=== PATIENT | male | born 1980 | race Caucasian/White ===

== ENCOUNTER → 2017-02-09 | Outpatient (CLI) | payer SELFPAY ==
--- NOTE | 2017-02-09 16:14 | CT ---
EXAMINATION: Non contrast CT head and facial bones. Coronal and sagittal reformats. HISTORY: Head injury FINDINGS: Head: No evidence of intra or extra axial hemorrhage, mass, midline shift, hydrocephalus or edema. No hypoattenuation changes in the major vascular territories to suggest acute infarct. No abnormal intracranial calcifications are detected. No evidence of substantial vascular calcifications. Paranasal sinuses and mastoid air cells are well aerated without substantial findings. Pituitary fo ssa appears unremarkable. Calvarium is intact. No evidence of skull fracture. Facial bones: There is a large periapical lucency within the right posterior mandible adjacent to th e posterior most molar with cortical breakthrough. There is a small dental Elicia involving the left posterior maxillary molar. There is mild mucosal thickening within the maxillary sinuses. Ethmoid ai r cells, sphenoid, and frontal sinuses are grossly clear. The nasal bones are intact. Moderate leftw roya deviation of the nasal septum with a spur. Zygomatic arches and pterygoid plates are intact. The ostiomeatal complexes are clear. The mandible and maxilla otherwise appear intact. Orbital dominguez ar e preserved the temporomandibular joints are symmetric. The globes are symmetric. Borderline level 1 lymph nodes bilaterally, symmetric and likely reactive. IMPRESSION: 1. No acute intracranial findings. 2. No displaced facial bone fracture identified. 3. Right posterior mandibular molar periapical lucency with cortical breakthrough. 4. No acute facial bone injury.
== END ==
LOC: MW.CT 12:23
PROVIDERS: ATTEND Family Medicine
DX: S09.90XA Unspecified injury of head, initial encounter (principal)
CPT/HCPCS: 70450; 70450-26; 70486; 70486-26

== ENCOUNTER 2019-04-17 19:19 | Emergency (ER) | payer SELFPAY ==
[2019-04-17] MEDS ORDERED: Ondansetron 4 MG/2 ML SDV IVPUSH ONE (20:10)
[2019-04-17] MEDS ORDERED: Sodium Chloride 0.9% 1,000 ML IV SCH (20:15)
--- NOTE | 2019-04-17 20:20 | EDM.PDOC ---
ED HPI GENERAL MEDICAL PROBLEM - General Chief Complaint: Gastrointestinal Problem Stated Complaint: DIZZY Time Seen by Provider: 04/17/19 19:55 - History of Present Illness INITIAL COMMENTS - FREE TEXT/NARRATIVE: HISTORY AND PHYSICAL: History of present illness: Patient 38-year-old white male presents with dizziness. He was cooking he is a short overcooked and hypertension and developed some dizziness no chest pain shortness of breath or other complaints. On arrival here patient does feel improved Review of systems: As per history of present illness and below otherwise all systems reviewed and negative. Past medical history: As per history of present illness and as reviewed below otherwise noncontributory. Surgical history: As per history of present illness and as reviewed below otherwise noncontributory. Social history: No reported history of drug or alcohol abuse. Family history: As per history of present illness and as reviewed below otherwise noncontributory. Physical exam: HEENT: Atraumatic, normocephalic, pupils reactive, negative for conjunctival pallor or scleral icterus, mucous membranes dry, throat clear, neck supple, nontender, trachea midline. Lungs: Clear to auscultation, breath sounds equal bilaterally, chest nontender. Heart: S1S2, regular, negative for clicks, rubs, or JVD. Abdomen: Soft, nondistended, nontender. Negative for masses or hepatosplenomegaly. Negative for costovertebral tenderness. Pelvis: Stable nontender. Genitourinary: Deferred. Rectal: Deferred. Extremities: Atraumatic, negative for cords or calf pain. Neurovascular unremarkable. Neuro: Awake, alert, oriented. Cranial nerves II through XII unremarkable. Cerebellum unremarkable. Motor and sensory unremarkable throughout. Exam nonfocal. Diagnostics: CBC CMP EKG Therapeutics: Saline 1 L bolus Impression: #1 dizziness #2 dehydration Definitive disposition and diagnosis as appropriate pending reevaluation and review of above. - Related Data Allergies Allergy/AdvReac Type Severity Reaction Status Date / Time No Known Allergies Allergy Verified 04/17/19 19:24 Home Meds: Home Meds Levothyroxine 320 mcg PO ACBREAKFAST 03/04/15 [History] Lisinopril [Prinivil] 20 mg PO DAILY 03/04/15 [History] Carvedilol 12.5 mg PO BID 09/08/18 [History] metFORMIN [Glucophage XR] 500 mg PO DAILY 09/08/18 [History] Past Medical History Cardiovascular History: Reports: Heart Failure, Hypertension, [place], Other (See Below) Other Cardiovascular History: IHSS; CHF Respiratory History: Reports: Asthma Other Respiratory History: was on home 02 but "not anymore" Other Gastrointestinal History: reports acid reflux Psychiatric History: Reports: Anxiety, Depression, PTSD Endocrine/Metabolic History: Reports: Diabetes, Type II, Hypothyroidism - Infectious Disease History Infectious Disease History: Reports: Chicken Pox - Past Surgical History Cardiovascular Surgical History: Reports: Other (See Below) Other Cardiovascular Surgeries/Procedures: [place] August 2013 Respiratory Surgical History: Reports: None GI Surgical History: Reports: None Social & Family History - Family History Family Medical History: Noncontributory - Tobacco Use Smoking Status *Q: Current Every Day Smoker Years of Tobacco use: 15 Packs/Tins Daily: 0.5 - Caffeine Use Caffeine Use: Reports: Soda - Recreational Drug Use Recreational Drug Use: No ED ROS GENERAL - Review of Systems Review Of Systems: ROS reveals no pertinent complaints other than HPI. ED EXAM, GENERAL - Physical Exam Exam: See Below (See dictation) Course - Vital Signs Last Recorded V/S: Last Vital Signs Temp 35.9 C 04/17/19 19:21 Pulse 71 04/17/19 19:21 Resp 18 04/17/19 19:21 BP 137/89 04/17/19 19:21 Pulse Ox 97 04/17/19 19:21 - Orders/Labs/Meds Orders: Active Orders 24 hr Category Date Time Status CMP [COMPREHENSIVE METABOLIC PN,CMP] [CHEM] Stat Lab 04/17/19 19:50 Received Sodium Chloride 0.9% [Normal Saline] 1,000 ml Med 04/17/19 20:15 Active IV ASDIRECTED Medication Orders Sodium Chloride (Normal Saline) 1,000 mls @ 999 mls/hr IV ASDIRECTED BEATRICE Labs: Laboratory Tests 04/17/19 Range/Units 19:50 WBC 9.61 (4.0-11.0) K/uL RBC 4.51 (4.50-5.90) M/uL Hgb 13.4 (13.0-17.0) g/dL Hct 38.3 (38.0-50.0) % MCV 84.9 (80.0-98.0) fL MCH 29.7 (27.0-32.0) pg MCHC 35.0 (31.0-37.0) g/dL RDW Std Deviation 45.9 (28.0-62.0) fl RDW Coeff of Edmundo 15 (11.0-15.0) % Plt Count 311 (150-400) K/uL MPV 9.70 (7.40-12.00) fL Neut % (Auto) 69.0 (48.0-80.0) % Lymph % (Auto) 18.8 (16.0-40.0) % [place] % (Auto) 8.2 (0.0-15.0) % Eos % (Auto) 3.3 (0.0-7.0) % Baso % (Auto) 0.7 (0.0-1.5) % Neut # (Auto) 6.6 H (1.4-5.7) K/uL Lymph # (Auto) 1.8 (0.6-2.4) K/uL [place] # (Auto) 0.8 (0.0-0.8) K/uL Eos # (Auto) 0.3 (0.0-0.7) K/uL Baso # (Auto) 0.1 (0.0-0.1) K/uL Nucleated RBC % 0.0 /100WBC Nucleated RBCs # 0 K/uL Meds: Medications Generic Name Dose Route Start Last Admin Trade Name Freq PRN Reason Stop Dose Admin Sodium Chloride 1,000 mls @ 999 mls/hr 04/17/19 20:15 Normal Saline IV ASDIRECTED BEATRICE Discontinued Medications Generic Name Dose Route Start Last Admin Trade Name Freq PRN Reason Stop Dose Admin Ondansetron HCl 4 mg 04/17/19 20:10 Zofran IVPUSH 04/17/19 20:11 ONETIME ONE Departure - Departure Time of Disposition: 20:19 Disposition: Home, Self-Care 01 Condition: Good Clinical Impression: Dizziness, Dehydration - Discharge Information Referrals: PCP,None [Primary Care Provider] - Additional Instructions: The following information is given to patients seen in the emergency department who are being discharged to home. This information is to outline your options for follow-up care. We provide all patients seen in our emergency department with a follow-up referral. The need for follow-up, as well as the timing and circumstances, are variable depending upon the specifics of your emergency department visit. If you don't have a primary care physician on staff, we will provide you with a referral. We always advise you to contact your personal physician following an emergency department visit to inform them of the circumstance of the visit and for follow-up with them and/or the need for any referrals to a consulting specialist. The emergency department will also refer you to a specialist when appropriate. This referral assures that you have the opportunity for followup care with a specialist. All of these measure are taken in an effort to provide you with optimal care, which includes your followup. Under all circumstances we always encourage you to contact your private physician who remains a resource for coordinating your care. When calling for followup care, please make the office aware that this follow-up is from your recent emergency room visit. If for any reason you are refused follow-up, please contact the [facility] emergency department at and asked to speak to the emergency department charge nurse. Push fluids follow-up private medical doctor as needed as discussed return as needed as discussed. Stop smoking - My Orders Last 24 Hours: My Active Orders 04/17/19 19:50 CMP [COMPREHENSIVE METABOLIC PN,CMP] [CHEM] Stat 04/17/19 20:15 Sodium Chloride 0.9% [Normal Saline] 1,000 ml IV ASDIRECTED - Assessment/Plan Last 24 Hours: My Active Orders 04/17/19 19:50 CMP [COMPREHENSIVE METABOLIC PN,CMP] [CHEM] Stat 04/17/19 20:15 Sodium Chloride 0.9% [Normal Saline] 1,000 ml IV ASDIRECTED
[2019-04-17 21:08] VITALS: BP 143/89
== END 2019-04-17 21:16 | disposition home or self-care (01) ==
LOC: MW.ED 19:19
DX: E86.0 Dehydration (principal); R42 Dizziness and giddiness; F41.9 Anxiety disorder, unspecified; F32.9 Major depressive disorder, single episode, unspecified; F17.210 Nicotine dependence, cigarettes, uncomplicated; I11.0 Hypertensive heart disease with heart failure; I50.9 Heart failure, unspecified; I25.2 Old myocardial infarction; E11.9 Type 2 diabetes mellitus without complications; E03.9 Hypothyroidism, unspecified; Z79.899 Other long term (current) drug therapy; Z79.84 Long term (current) use of oral hypoglycemic drugs
CPT/HCPCS: 80053; 85025; 93005; 96361; 96374; 99284; J2405; J7040; 99283

== ENCOUNTER 2019-09-07 14:48 | Emergency (ER) | payer SELFPAY ==
[2019-09-07] MEDS ORDERED: Albuterol/Ipratropium 3.0-0.5 MG/3 ML Neb Soln NEB ONE (15:03)
[2019-09-07] MEDS ORDERED: methylPREDNISolone Sodium Succinate 125 MG/2 ML SDV IVPUSH ONE (15:03)
--- NOTE | 2019-09-07 15:08 | EDM.PDOC ---
ED HPI GENERAL MEDICAL PROBLEM - General Chief Complaint: Cardiovascular Problem Stated Complaint: TROUBLE BREATHING Time Seen by Provider: 09/07/19 14:57 Source of Information: Reports: Patient History Limitations: Reports: No Limitations - History of Present Illness INITIAL COMMENTS - FREE TEXT/NARRATIVE: HISTORY AND PHYSICAL: History of present illness: Patient is a 38-year-old male who presents to the ED today with concern of shortness of breath that is worsening over the past week. Patient states last night and today the shortness breath has become more severe that he is having a hard time laying down. Patient states that the last time he felt like this is when he had a congestive heart failure exacerbation and symptoms today feel similar to his past exacerbation. Patient states he also has a history of diabetes. Patient states over the past week he has gained approximately 40 pounds. Patient states he does follow with cardiology in [place] but has not had to see them in quite some time because he has been doing well according the patient. Patient states over the past week he has also had a cough. Patient states he generally smokes about half pack cigarettes a day for over the past week she's maybe smoked in total 2 cigarettes to his symptoms. Patient denies fever, chills, chest pain. Denies headache, neck stiff ness, change in vision, syncope, or near syncope. Denies nausea, vomiting, abdominal pain, diarrhea, constipation, or dysuria. Has not noted any blood in urine or stool. Patient has been eating and drinking appropriately. Review of systems: As per history of present illness and below otherwise all systems reviewed and negative. Past medical history: As per history of present illness and as reviewed below otherwise noncontributory. Surgical history: As per history of present illness and as reviewed below otherwise noncontributory. Social history: See social history for further information Family history: As per history of present illness and as reviewed below otherwise noncontributory. Physical exam: General: Patient is alert, oriented, and in no acute distress. Patient sitting comfortably on exam table. HEENT: Atraumatic, normocephalic, pupils equal and reactive bilaterally, negative for conjunctival pallor or scleral icterus, mucous membranes moist, TMs normal bilaterally, throat clear, neck supple, nontender, trachea midline. No drooling or trismus noted. No meningeal signs. No hot potato voice noted. Lungs: Wheezing to auscultation throughout all lung holt, breath sounds equal bilaterally, chest nontender. Heart: S1S2, regular rate and rhythm without overt murmur Abdomen: Soft, nondistended, nontender. Negative for masses or hepatosplenomegaly. Negative for costovertebral tenderness. Pelvis: Stable nontender. Genitourinary: Deferred. Rectal: Deferred. Skin: Intact, warm, dry. No lesions or rashes noted. Extremities: Atraumatic, negative for cords or calf pain. Neurovascular unremarkable. Neuro: Awake, alert, oriented. Cranial nerves II through XII unremarkable. Cerebellum unremarkable. Motor and sensory unremarkable throughout. Exam nonfocal. Notes: Dr. Wagner directly involved in patient care. EKG reviewed with Dr. Wagner and questionable new LBBB changes from prior EKG. Throughout stating ED, patient did become diaphoretic and pale. He does not express any chest pain at this time. BP 220/130 at this time. BP does come down to 160-170/[address] Martinez, [facility], consulted on patient and accepting of transfer. Flight arranged. Voices understanding and is agreeable to plan of care. Denies any further questions or concerns at this time. Diagnostics: CBC, CMP, UA, EKG, chest x-ray, troponin, BNP, influenza, ABG Therapeutics: Duoneb, Solumedrol, Nitro, ASA, Lopressor, Vasotec, Lovenox Impression: Acute Coronary Syndrome Hypertension Plan: Transfer to [facility] to [facility] via flight Definitive disposition and diagnosis as appropriate pending reevaluation and review of above. - Related Data Allergies Allergy/AdvReac Type Severity Reaction Status Date / Time No Known Allergies Allergy Verified 04/17/19 19:24 Home Meds: Home Meds Levothyroxine 320 mcg PO ACBREAKFAST 03/04/15 [History] Lisinopril [Prinivil] 20 mg PO DAILY 03/04/15 [History] carvediloL [Carvedilol] 12.5 mg PO BID 09/08/18 [History] metFORMIN [Glucophage XR] 500 mg PO DAILY 09/08/18 [History] Furosemide [Lasix] 40 mg PO ASDIRECTED 09/07/19 [History] Omeprazole 20 mg PO ASDIRECTED 09/07/19 [History] Past Medical History Cardiovascular History: Reports: Heart Failure, Hypertension, [place], Other (See Below) Other Cardiovascular History: IHSS; CHF Respiratory History: Reports: Asthma Other Respiratory History: was on home 02 but "not anymore" Other Gastrointestinal History: reports acid reflux Psychiatric History: Reports: Anxiety, Depression, PTSD Endocrine/Metabolic History: Reports: Diabetes, Type II, Hypothyroidism - Infectious Disease History Infectious Disease History: Reports: Chicken Pox - Past Surgical History Cardiovascular Surgical History: Reports: Other (See Below) Other Cardiovascular Surgeries/Procedures: [place] August 2013 Respiratory Surgical History: Reports: None GI Surgical History: Reports: None Social & Family History - Family History Family Medical History: Noncontributory - Caffeine Use Caffeine Use: Reports: Soda ED ROS GENERAL - Review of Systems Review Of Systems: Comprehensive ROS is negative, except as noted in HPI. ED EXAM, GENERAL - Physical Exam Exam: See Below (see dictation) Course - Vital Signs Last Recorded V/S: Last Vital Signs Temp 97.9 F 09/07/19 14:55 Pulse 89 09/07/19 18:00 Resp 20 09/07/19 18:00 BP 165/117 H 09/07/19 18:00 Pulse Ox 98 09/07/19 18:00 - Orders/Labs/Meds Orders: Active Orders 24 hr Category Date Time Status EKG Documentation Completion [RC] STAT Care 09/07/19 14:58 Active RT Aerosol Therapy [RC] ASDIRECTED Care 09/07/19 15:04 Active Labs: Laboratory Tests 09/07/19 09/07/19 09/07/19 Range/Units 15:05 15:05 15:05 WBC 9.14 (4.0-11.0) K/uL RBC 3.68 L (4.50-5.90) M/uL Hgb 11.4 L (13.0-17.0) g/dL Hct 34.3 L (38.0-50.0) % MCV 93.2 (80.0-98.0) fL MCH 31.0 (27.0-32.0) pg MCHC 33.2 (31.0-37.0) g/dL RDW Std Deviation 55.3 (28.0-62.0) fl RDW Coeff of Edmundo 16 H (11.0-15.0) % Plt Count 225 (150-400) K/uL MPV 11.20 (7.40-12.00) fL Neut % (Auto) 74.1 (48.0-80.0) % Lymph % (Auto) 14.9 L (16.0-40.0) % [place] % (Auto) 7.9 (0.0-15.0) % Eos % (Auto) 2.6 (0.0-7.0) % Baso % (Auto) 0.5 (0.0-1.5) % Neut # (Auto) 6.8 H (1.4-5.7) K/uL Lymph # (Auto) 1.4 (0.6-2.4) K/uL [place] # (Auto) 0.7 (0.0-0.8) K/uL Eos # (Auto) 0.2 (0.0-0.7) K/uL Baso # (Auto) 0.1 (0.0-0.1) K/uL Nucleated RBC % 0.0 /100WBC Nucleated RBCs # 0 K/uL ABG pH (7.35-7.45) ABG pCO2 (35-45) mmHG ABG pO2 (75-100) mmHG ABG HCO3 (22-26) mEq/L ABG Total CO2 ABG Base Excess (-2.0-2.0) Sodium 140 (136-148) mmol/L Potassium 3.5 (3.5-5.1) mmol/L Chloride 102 (98-107) mmol/L Carbon Dioxide 30.1 (21.0-32.0) mmol/L BUN 18 (7.0-18.0) mg/dL Creatinine 1.4 H (0.8-1.3) mg/dL Est Cr Clr Drug Dosing 75.45 mL/min Estimated GFR (MDRD) 56.4 ml/min Glucose 260 H (74-106) mg/dL Calcium 7.8 L (8.5-10.1) mg/dL Total Bilirubin 0.3 (0.2-1.0) mg/dL AST 19 (15-37) IU/L ALT 20 (14-63) IU/L Alkaline Phosphatase 80 (46-116) U/L Troponin I 0.063 H* (0.000-0.056) ng/mL B-Natriuretic Peptide 643 H (<100) PG/ML Total Protein 7.6 (6.4-8.2) g/dL Albumin 3.1 L (3.4-5.0) g/dL Globulin 4.5 H (2.6-4.0) g/dL Albumin/Globulin Ratio 0.7 L (0.9-1.6) Urine Color Urine Appearance Urine pH (5.0-8.0) Ur Specific [place] (1.001-1.035) Urine Protein (NEGATIVE) mg/dL Urine Glucose (UA) (NEGATIVE) mg/dL Urine Ketones (NEGATIVE) mg/dL Urine Occult Blood (NEGATIVE) Urine Nitrite (NEGATIVE) Urine Bilirubin (NEGATIVE) Urine Urobilinogen (<2.0) EU/dL Ur Leukocyte Esterase (NEGATIVE) Urine RBC (0-2/HPF) Urine WBC (0-5/HPF) Ur Epithelial Cells (NONE-FEW) Urine Bacteria (NEGATIVE) 09/07/19 09/07/19 Range/Units 16:05 16:35 WBC (4.0-11.0) K/uL RBC (4.50-5.90) M/uL Hgb (13.0-17.0) g/dL Hct (38.0-50.0) % MCV (80.0-98.0) fL MCH (27.0-32.0) pg MCHC (31.0-37.0) g/dL RDW Std Deviation (28.0-62.0) fl RDW Coeff of Edmundo (11.0-15.0) % Plt Count (150-400) K/uL MPV (7.40-12.00) fL Neut % (Auto) (48.0-80.0) % Lymph % (Auto) (16.0-40.0) % [place] % (Auto) (0.0-15.0) % Eos % (Auto) (0.0-7.0) % Baso % (Auto) (0.0-1.5) % Neut # (Auto) (1.4-5.7) K/uL Lymph # (Auto) (0.6-2.4) K/uL [place] # (Auto) (0.0-0.8) K/uL Eos # (Auto) (0.0-0.7) K/uL Baso # (Auto) (0.0-0.1) K/uL Nucleated RBC % /100WBC Nucleated RBCs # K/uL ABG pH 7.440 (7.35-7.45) ABG pCO2 46 H (35-45) mmHG ABG pO2 92 (75-100) mmHG ABG HCO3 31 H (22-26) mEq/L ABG Total CO2 28.6 ABG Base Excess 6.1 H (-2.0-2.0) Sodium (136-148) mmol/L Potassium (3.5-5.1) mmol/L Chloride (98-107) mmol/L Carbon Dioxide (21.0-32.0) mmol/L BUN (7.0-18.0) mg/dL Creatinine (0.8-1.3) mg/dL Est Cr Clr Drug Dosing mL/min Estimated GFR (MDRD) ml/min Glucose (74-106) mg/dL Calcium (8.5-10.1) mg/dL Total Bilirubin (0.2-1.0) mg/dL AST (15-37) IU/L ALT (14-63) IU/L Alkaline Phosphatase (46-116) U/L Troponin I (0.000-0.056) ng/mL B-Natriuretic Peptide (<100) PG/ML Total Protein (6.4-8.2) g/dL Albumin (3.4-5.0) g/dL Globulin (2.6-4.0) g/dL Albumin/Globulin Ratio (0.9-1.6) Urine Color YELLOW Urine Appearance CLEAR Urine pH 6.5 (5.0-8.0) Ur Specific [place] 1.025 (1.001-1.035) Urine Protein 100 H (NEGATIVE) mg/dL Urine Glucose (UA) >=1000 (NEGATIVE) mg/dL Urine Ketones NEGATIVE (NEGATIVE) mg/dL Urine Occult Blood SMALL H (NEGATIVE) Urine Nitrite NEGATIVE (NEGATIVE) Urine Bilirubin NEGATIVE (NEGATIVE) Urine Urobilinogen 1.0 (<2.0) EU/dL Ur Leukocyte Esterase NEGATIVE (NEGATIVE) Urine RBC 0-1 (0-2/HPF) Urine WBC RARE (0-5/HPF) Ur Epithelial Cells RARE (NONE-FEW) Urine Bacteria NOT SEEN (NEGATIVE) Meds: Medications Discontinued Medications Generic Name Dose Route Start Last Admin Trade Name Freq PRN Reason Stop Dose Admin Albuterol/Ipratropium 3 ml 09/07/19 15:03 09/07/19 15:13 Duoneb 3.0-0.5 Mg/3 Ml NEB 09/07/19 15:04 3 ml ONETIME ONE Administration Aspirin 324 mg 09/07/19 16:37 09/07/19 16:43 Aspirin PO 09/07/19 16:38 324 mg ONETIME ONE Administration Enalaprilat 1.25 mg 09/07/19 16:38 09/07/19 16:44 Vasotec Iv IVPUSH 09/07/19 16:39 1.25 mg ONETIME ONE Administration Enoxaparin Sodium 150 mg 09/07/19 16:58 Lovenox SUBCUT 09/07/19 16:59 ONETIME ONE Methylprednisolone Sodium Succinate 125 mg 09/07/19 15:03 09/07/19 15:38 Solu-Medrol IVPUSH 09/07/19 15:04 125 mg ONETIME ONE Administration Metoprolol Tartrate 5 mg 09/07/19 16:38 09/07/19 16:54 Lopressor IV 09/07/19 16:39 5 mg NOW STA Administration Nitroglycerin 0.4 mg 09/07/19 16:04 09/07/19 16:10 Nitrostat SL 09/07/19 16:05 0.4 mg NOW STA Administration Departure - Departure Time of Disposition: 09:49 Disposition: DC/Tfer to [facility] 02 Reason for Transfer *Q: Primary PCI Indicated Clinical Impression: Acute coronary syndrome Hypertension Qualifiers: Hypertension type: unspecified Qualified Code(s): I10 - Essential (primary) hypertension Referrals: PCP,Unobtain [Primary Care Provider] - Forms: ED Department Discharge Sepsis Event Note - Evaluation Sepsis Screening Result: No Definite Risk - Focused Exam Date Exam was Performed: 09/08/19 Time Exam was Performed: 09:50 - My Orders Last 24 Hours: My Active Orders 09/07/19 14:58 EKG Documentation Completion [RC] STAT 09/07/19 15:04 RT Aerosol Therapy [RC] ASDIRECTED - Assessment/Plan Last 24 Hours: My Active Orders 09/07/19 14:58 EKG Documentation Completion [RC] STAT 09/07/19 15:04 RT Aerosol Therapy [RC] ASDIRECTED
--- NOTE | 2019-09-07 15:47 | CR ---
INDICATION: Dyspnea TECHNIQUE: Chest 1 view. COMPARISON: Chest x-ray 09/08/2018 FINDINGS: The heart is at the upper limits of normal in size, which may be accentuated due to AP technique. The pulmonary vasculature is within normal limits. The lungs are clear. IMPRESSION: Stable chest without acute cardiopulmonary process. Dictated by Nelia Coburn MD @ 09/07/2019 3:44:58 PM Dictated by: Nelia Coburn MD @ 09/07/2019 15:45:46 (Electronically Signed)
[2019-09-07] MEDS ORDERED: Nitroglycerin 0.4 MG Tab.SL SL STA (16:04)
[2019-09-07 16:32] LABS: CARBON DIOXIDE,CO2 30.1 mmol/L (21.0-32.0); POTASSIUM,K 3.5 mmol/L (3.5-5.1)
[2019-09-07] MEDS ORDERED: Aspirin 81 MG Tab.Chew PO ONE (16:37)
[2019-09-07] MEDS ORDERED: Enalaprilat 1.25 MG/ML SDV IVPUSH ONE (16:38)
[2019-09-07] MEDS ORDERED: Metoprolol Tartrate 5 MG/5 ML SDV IV STA (16:38)
[2019-09-07] MEDS ORDERED: Enoxaparin 150 MG/1 ML Syringe SUBCUT ONE (16:58)
[2019-09-07 22:36] VITALS: BP 165/117; PULSE 89
== END 2019-09-07 18:10 ==
LOC: MW.ED 14:48
DX: I24.9 Acute ischemic heart disease, unspecified (principal); I11.0 Hypertensive heart disease with heart failure; I50.9 Heart failure, unspecified; E11.9 Type 2 diabetes mellitus without complications; K21.9 Gastro-esophageal reflux disease without esophagitis; E03.9 Hypothyroidism, unspecified; Z79.899 Other long term (current) drug therapy; Z79.84 Long term (current) use of oral hypoglycemic drugs
CPT/HCPCS: 36415; 36600; 71045; 80053; 81001; 82803; 83880; 84484; 85025; 87804; 93005; 94640; 96374; 96375; 99285; A9270; J2930; J3490; J7620-GY

== ENCOUNTER 2020-07-23 02:27 | Emergency (ER) | payer SELFPAY ==
[2020-07-23] MEDS ORDERED: Sodium Chloride 0.9% 10 ML Syringe FLUSH PRN (02:32)
[2020-07-23] MEDS ORDERED: Sodium Chloride 0.9% 2.5 ML Syringe FLUSH PRN (02:32)
--- NOTE | 2020-07-23 02:37 | EDM.PDOC ---
ED HPI GENERAL MEDICAL PROBLEM - General Stated Complaint: STROKE CODE Time Seen by Provider: 07/23/20 02:32 - History of Present Illness INITIAL COMMENTS - FREE TEXT/NARRATIVE: History of present illness: [] 2 to 3 days he says he has had trouble speaking. He can only came with his daughter when he was trying to talk to her. He has difficulty using his dominant right arm and walking because he drags his right leg. His friends have noticed it for least 2 days. He thinks he is gradually gotten a little worse. Patient has no headaches. Patient is diabetic and smokes. Review of systems: As per history of present illness and below otherwise all systems reviewed and negative. Past medical history: As per history of present illness and as reviewed below otherwise noncontributory. Surgical history: As per history of present illness and as reviewed below otherwise noncontributory. Social history: No reported history of drug or alcohol abuse. Family history: As per history of present illness and as reviewed below otherwise noncontri butory. Physical exam: Constitutional - well developed, well-nourished and in no acute distress HEENT - normocephalic, no evidence of trauma - external nose and mouth normal - no mass in neck and no JVD - mucosae moist EYES - full EOM, PERRL, no icterus - no evidence of inflammation, injection, or drainage Respiratory - no respiratory distress, equal bilateral expansion, lungs clear to auscultation and no abnormal lung sounds Cardiovascular - Regular Rhythm with S1 and S2 appreciated and no murmur, gallop or rub. GI - abdomen soft without distension or organomegaly - normal bowel sounds - no guard or rebound Musculoskeletal no gross deformity of long bones or joints - no tenderness, swelling or edema Neurologic - Alert and oriented times four - CN II-XII grossly intact -patient has significant drift of the right arm or right leg. He has weakness of the digital editor on the right and weakness in the right upper extremity. Difficulty finishing a sentence. He stops and cannot find the words that he wants. Psychiatric - appropriate mood and affect with normal thought content Hematologic - No petechiae or purpura - mucosa appropriate color and sclera not pale - normal nail bed color and refill Integument - no rash or evidence of trauma - normal turgor Diagnostics: [] Therapeutics: [] Impression: [] Plan: [] Definitive disposition and diagnosis as appropriate pending reevaluation and review of above. - Related Data Allergies Allergy/AdvReac Type Severity Reaction Status Date / Time No Known Allergies Allergy Verified 04/17/19 19:24 Home Meds: Home Meds Levothyroxine 200 mcg PO ACBREAKFAST 03/04/15 [History] lisinopriL [Prinivil] 20 mg PO DAILY 03/04/15 [History] carvediloL [Carvedilol] 12.5 mg PO BID 09/08/18 [History] Furosemide [Lasix] 40 mg PO ASDIRECTED 09/07/19 [History] Omeprazole 40 mg PO ASDIRECTED 09/07/19 [History] Albuterol [Ventolin HFA] 2 puff INH PRN 07/23/20 [History] Diltiazem [Tiazac] 240 mg PO DAILY 07/23/20 [History] Mometasone/Formoterol [Dulera 100-5 MCG] 1 puff INH 07/23/20 [History] Mupirocin Oint [Bactroban Oint] 22 gm TP 07/23/20 [History] Potassium Chloride [Klor-Con 10] 10 meq PO DAILY 07/23/20 [History] Rosuvastatin Calcium 10 mg PO DAILY 07/23/20 [History] Spironolactone [Aldactone] 25 mg PO DAILY 07/23/20 [History] glipiZIDE [Glucotrol XL] 10 mg PO DAILY 07/23/20 [History] sitaGLIPtin Phosphate [Januvia] 100 mg PO DAILY 07/23/20 [History] Past Medical History Cardiovascular History: Reports: Heart Failure, Hypertension, [place], Other (See Below) Other Cardiovascular History: IHSS; CHF Respiratory History: Reports: Asthma Other Respiratory History: was on home 02 but "not anymore" Other Gastrointestinal History: reports acid reflux Psychiatric History: Reports: Anxiety, Depression, PTSD Endocrine/Metabolic History: Reports: Diabetes, Type II, Hypothyroidism - Infectious Disease History Infectious Disease History: Reports: Chicken Pox - Past Surgical History Cardiovascular Surgical History: Reports: Other (See Below) Other Cardiovascular Surgeries/Procedures: UT August 2013 Respiratory Surgical History: Reports: None GI Surgical History: Reports: None Social & Family History - Family History Family Medical History: Noncontributory - Caffeine Use Caffeine Use: Reports: Soda ED ROS GENERAL - Review of Systems Review Of Systems: Comprehensive ROS is negative, except as noted in HPI. ED EXAM, GENERAL - Physical Exam Exam: See Below Free Text/Narrative:: My physical exam is in the HPI #1 Interpretation EKG Interpretation Comments: EKG was done 07/23/2020 at 3:16 AM and interpreted at 3:20 AM sinus rhythm with a heart rate of 99 and an axis of -71. NH 178 QT 509. Left bundle branch p attern with a accompanying repolarization changes. Compared to 09/07/2019 no change impression no acute injury. Course - Vital Signs Text/Narrative:: 3:08 AM radiologist called and said the patient had a cecal hemorrhage and post subacute infarct in the left putamen. Patient's initial glucose was 862. CO2 is 17. Patient will be treated for DKA. Blood pressure is elevated. The patient's requirements and blood pressure with the stroke and petechial hemorrhage are competing urgent conditions the treatment for one may cause problems for the other. Discussed with Dr. Trinh at [facility] and accepted in transport to the emergency department. Competing emergent conditions needing treatment for which one may cause det riment to the other will necessitate air transport to the nearest facility. Critical care time-total time spent evaluating patient, reviewing available data, making assessments plans treatment decisions, discussing with physician and radiologist 40 minutes - Orders/Labs/Meds Orders: Active Orders 24 hr Category Date Time Status Cardiac Monitoring [RC] . DIRECTED Care 07/23/20 02:32 Active EKG Documentation Completion [RC] AM Care 07/23/20 02:32 Active Ang Head [CT] Stat Exams 07/23/20 02:33 Taken Ang Neck [CT] Stat Exams 07/23/20 02:34 Taken Chest 1V Frontal [CR] Stat Exams 07/23/20 02:35 Ordered COMPREHENSIVE METABOLIC PN,CMP [CHEM] Stat Lab 07/23/20 02:27 Results DRUG SCREEN, URINE [URCHEM] Stat Lab 07/23/20 02:33 Ordered ETHANOL BLOOD MEDICAL [CHEM] Stat Lab 07/23/20 02:27 Results KETONES,BLOOD [CHEM] Stat Lab 07/23/20 02:27 Received TROPONIN I [CHEM] Stat Lab 07/23/20 02:27 Results Dextrose 50% in Water Med 07/23/20 03:19 Active 50 ml IV ASDIRECTED PRN Glucagon,Human Recombinant [GlucaGen] Med 07/23/20 03:19 Active 1 mg IM ASDIRECTED PRN Sodium Chloride 0.9% [Normal Saline] 1,000 ml Med 07/23/20 03:30 Active IV ASDIRECTED Sodium Chloride 0.9% [Saline Flush] Med 07/23/20 02:32 Active 10 ml FLUSH ASDIRECTED PRN Sodium Chloride 0.9% [Saline Flush] Med 07/23/20 02:32 Active 2.5 ml FLUSH ASDIRECTED PRN Saline Lock Insert [OM.PC] Stat Oth 07/23/20 02:32 Ordered Medication Orders Dextrose/Water (Dextrose 50% In Water) 50 ml IV ASDIRECTED PRN PRN Reason: Hypoglycemia Glucagon (Glucagen) 1 mg IM ASDIRECTED PRN PRN Reason: Hypoglycemia Sodium Chloride (Normal Saline) 1,000 mls @ 200 mls/hr IV ASDIRECTED BEATRICE Sodium Chloride (Saline Flush) 10 ml FLUSH ASDIRECTED PRN PRN Reason: Keep Vein Open Sodium Chloride (Saline Flush) 2.5 ml FLUSH ASDIRECTED PRN PRN Reason: Keep Vein Open Labs: Laboratory Tests 07/23/20 07/23/20 07/23/20 Range/Units 02:27 02:27 02:27 WBC 9.37 (4.0-11.0) K/uL RBC 4.17 L (4.50-5.90) M/uL Hgb 12.6 L (13.0-17.0) g/dL Hct 38.8 (38.0-50.0) % MCV 93.0 (80.0-98.0) fL MCH 30.2 (27.0-32.0) pg MCHC 32.5 (31.0-37.0) g/dL RDW Std Deviation 48.7 (28.0-62.0) fl RDW Coeff of Edmundo 14 (11.0-15.0) % Plt Count 297 (150-400) K/uL MPV 10.40 (7.40-12.00) fL Neut % (Auto) 82.3 H (48.0-80.0) % Lymph % (Auto) 11.6 L (16.0-40.0) % Upton % (Auto) 4.6 (0.0-15.0) % Eos % (Auto) 1.0 (0.0-7.0) % Baso % (Auto) 0.5 (0.0-1.5) % Neut # (Auto) 7.7 H (1.4-5.7) K/uL Lymph # (Auto) 1.1 (0.6-2.4) K/uL Upton # (Auto) 0.4 (0.0-0.8) K/uL Eos # (Auto) 0.1 (0.0-0.7) K/uL Baso # (Auto) 0.1 (0.0-0.1) K/uL Nucleated RBC % 0.0 /100WBC Nucleated RBCs # 0 K/uL INR 0.91 APTT 23.5 (18.6-31.3) SEC VBG pH (7.31-7.41) VBG pCO2 (35-45) mmHG VBG pO2 (30-40) mmHG VBG HCO3 (22-30) mEq/L VBG Total CO2 (41-51) mmol/L VBG Base Excess (-3.0-3.0) Sodium 125 L (136-148) mmol/L Potassium 4.7 (3.5-5.1) mmol/L Chloride 91 L (98-107) mmol/L Carbon Dioxide 17.8 L (21.0-32.0) mmol/L BUN 32 H (7.0-18.0) mg/dL Creatinine 2.5 H (0.8-1.3) mg/dL Est Cr Clr Drug Dosing TNP Estimated GFR (MDRD) 28.7 ml/min Calcium 8.7 (8.5-10.1) mg/dL Total Bilirubin 0.3 (0.2-1.0) mg/dL AST 13 L (15-37) IU/L ALT 32 (14-63) IU/L Alkaline Phosphatase 215 H (46-116) U/L Troponin I < 0.050 (0.000-0.056) ng/mL Total Protein 8.5 H (6.4-8.2) g/dL Albumin 3.9 (3.4-5.0) g/dL Globulin 4.6 H (2.6-4.0) g/dL Albumin/Globulin Ratio 0.9 (0.9-1.6) Ethyl Alcohol <3 mg/dL 07/23/20 Range/Units 02:27 WBC (4.0-11.0) K/uL RBC (4.50-5.90) M/uL Hgb (13.0-17.0) g/dL Hct (38.0-50.0) % MCV (80.0-98.0) fL MCH (27.0-32.0) pg MCHC (31.0-37.0) g/dL RDW Std Deviation (28.0-62.0) fl RDW Coeff of Edmundo (11.0-15.0) % Plt Count (150-400) K/uL MPV (7.40-12.00) fL Neut % (Auto) (48.0-80.0) % Lymph % (Auto) (16.0-40.0) % Upton % (Auto) (0.0-15.0) % Eos % (Auto) (0.0-7.0) % Baso % (Auto) (0.0-1.5) % Neut # (Auto) (1.4-5.7) K/uL Lymph # (Auto) (0.6-2.4) K/uL Upton # (Auto) (0.0-0.8) K/uL Eos # (Auto) (0.0-0.7) K/uL Baso # (Auto) (0.0-0.1) K/uL Nucleated RBC % /100WBC Nucleated RBCs # K/uL INR APTT (18.6-31.3) SEC VBG pH 7.26 L (7.31-7.41) VBG pCO2 41 (35-45) mmHG VBG pO2 54 H (30-40) mmHG VBG HCO3 18 L (22-30) mEq/L VBG Total CO2 17 L (41-51) mmol/L VBG Base Excess -8.3 L (-3.0-3.0) Sodium (136-148) mmol/L Potassium (3.5-5.1) mmol/L Chloride (98-107) mmol/L Carbon Dioxide (21.0-32.0) mmol/L BUN (7.0-18.0) mg/dL Creatinine (0.8-1.3) mg/dL Est Cr Clr Drug Dosing Estimated GFR (MDRD) ml/min Calcium (8.5-10.1) mg/dL Total Bilirubin (0.2-1.0) mg/dL AST (15-37) IU/L ALT (14-63) IU/L Alkaline Phosphatase (46-116) U/L Troponin I (0.000-0.056) ng/mL Total Protein (6.4-8.2) g/dL Albumin (3.4-5.0) g/dL Globulin (2.6-4.0) g/dL Albumin/Globulin Ratio (0.9-1.6) Ethyl Alcohol mg/dL Meds: Medications Generic Name Dose Route Start Last Admin Trade Name Freq PRN Reason Stop Dose Admin Dextrose/Water 50 ml 07/23/20 03:19 Dextrose 50% In Water IV ASDIRECTED PRN Hypoglycemia Glucagon 1 mg 07/23/20 03:19 Glucagen IM ASDIRECTED PRN Hypoglycemia Sodium Chloride 1,000 mls @ 200 mls/hr 07/23/20 03:30 Normal Saline IV ASDIRECTED BEATRICE Sodium Chloride 10 ml 07/23/20 02:32 Saline Flush FLUSH ASDIRECTED PRN Keep Vein Open Sodium Chloride 2.5 ml 07/23/20 02:32 Saline Flush FLUSH ASDIRECTED PRN Keep Vein Open Discontinued Medications Generic Name Dose Route Start Last Admin Trade Name Freq PRN Reason Stop Dose Admin Insulin Human Regular 10 unit 07/23/20 03:19 Novolin R IVPUSH 07/23/20 03:20 ONETIME ONE Protocol Iopamidol 100 ml 07/23/20 02:57 07/23/20 02:58 Isovue Multipack-370 (76%) IVPUSH 07/23/20 02:58 100 ml ONETIME STA Administration Departure - Departure Time of Disposition: 04:00 Disposition: DC/Tfer to Acute Hospital 02 Condition: Fair Clinical Impression: CVA (cerebral vascular accident), DKA (diabetic ketoacidoses) - Discharge Information - My Orders Last 24 Hours: My Active Orders 07/23/20 02:27 COMPREHENSIVE METABOLIC PN,CMP [CHEM] Stat ETHANOL BLOOD MEDICAL [CHEM] Stat KETONES,BLOOD [CHEM] Stat TROPONIN I [CHEM] Stat 07/23/20 02:32 Cardiac Monitoring [RC] . DIRECTED EKG Documentation Completion [RC] AM Sodium Chloride 0.9% [Saline Flush] 10 ml FLUSH ASDIRECTED PRN Sodium Chloride 0.9% [Saline Flush] 2.5 ml FLUSH ASDIRECTED PRN Saline Lock Insert [OM.PC] Stat 07/23/20 02:33 Ang Head [CT] Stat DRUG SCREEN, URINE [URCHEM] Stat 07/23/20 02:34 Ang Neck [CT] Stat 07/23/20 02:35 Chest 1V Frontal [CR] Stat 07/23/20 03:19 Dextrose 50% in Water 50 ml IV ASDIRECTED PRN Glucagon,Human Recombinant [GlucaGen] 1 mg IM ASDIRECTED PRN 07/23/20 03:30 Sodium Chloride 0.9% [Normal Saline] 1,000 ml IV ASDIRECTED - Assessment/Plan Last 24 Hours: My Active Orders 07/23/20 02:27 COMPREHENSIVE METABOLIC PN,CMP [CHEM] Stat ETHANOL BLOOD MEDICAL [CHEM] Stat KETONES,BLOOD [CHEM] Stat TROPONIN I [CHEM] Stat 07/23/20 02:32 Cardiac Monitoring [RC] . DIRECTED EKG Documentation Completion [RC] AM Sodium Chloride 0.9% [Saline Flush] 10 ml FLUSH ASDIRECTED PRN Sodium Chloride 0.9% [Saline Flush] 2.5 ml FLUSH ASDIRECTED PRN Saline Lock Insert [OM.PC] Stat 07/23/20 02:33 Ang Head [CT] Stat DRUG SCREEN, URINE [URCHEM] Stat 07/23/20 02:34 Ang Neck [CT] Stat 07/23/20 02:35 Chest 1V Frontal [CR] Stat 07/23/20 03:19 Dextrose 50% in Water 50 ml IV ASDIRECTED PRN Glucagon,Human Recombinant [GlucaGen] 1 mg IM ASDIRECTED PRN 07/23/20 03:30 Sodium Chloride 0.9% [Normal Saline] 1,000 ml IV ASDIRECTED
[2020-07-23] MEDS ORDERED: Iopamidol 755 MG/ML 500 ML Multipack Bottle IVPUSH STA (02:57)
[2020-07-23 03:01] LABS: BLOOD UREA NITROGEN,BUN 32 mg/dL (7.0-18.0); CARBON DIOXIDE,CO2 17.8 mmol/L (21.0-32.0); CHLORIDE,CL 91 mmol/L (98-107); POTASSIUM,K 4.7 mmol/L (3.5-5.1); SODIUM,NA 125 mmol/L (136-148)
--- NOTE | 2020-07-23 03:11 | CT ---
INDICATION: Right sided arm weakness, difficulty speaking for 3 days TECHNIQUE: CT Head without i.v. contrast. COMPARISON: 09/08/2018 FINDINGS: CSF space: The ventricles are normal for age. Brain: No evidence of mass, acute infarction or hemorrhage is seen. No mass-effect or midline shift is seen. The brain parenchyma is otherwise normal in appearance with preservation of the bryant-white matter junction. Calvarium: The visualized paranasal sinuses are well aerated. The mastoid air cells are clear. The visualized orbits are grossly unremarkable. The calvarium is unremarkable in appearance with no fractures identified. Miscellaneous: Heterogeneous ill-defined densities present within the left putamen, new from prior examination. IMPRESSION: 1. Heterogeneous ill-defined densities present within the left putamen, new from prior examination. Clinical correlation or evaluation with MRI may be helpful to exclude petechial hemorrhages within a subacute infarct. The findings were discussed with Dr. Bower at 3:10 AM. Dictated by Timothy Joyner MD @ 07/23/2020 3:10:33 AM Please note that all CT scans at this facility use dose modulation, iterative reconstruction, and/or weight-based dosing when appropriate to reduce radiation dose to as low as reasonably achievable. Dictated by: Timothy Joyner MD @ 07/23/2020 03:10:42 (Electronically Signed)
[2020-07-23] MEDS ORDERED: 50% Dextrose in Water 50 ML Syringe IV PRN (03:19)
[2020-07-23] MEDS ORDERED: Insulin Regular, Human 100 Units/ML 10 ML Vial IVPUSH ONE (03:19)
[2020-07-23] MEDS ORDERED: Glucagon,Human Recombinant 1 MG Vial IM PRN (03:19)
[2020-07-23 03:29] LABS: GLUCOSE RANDOM 862 mg/dL (74-106)
[2020-07-23] MEDS ORDERED: Sodium Chloride 0.9% 1,000 ML IV SCH (03:30)
--- NOTE | 2020-07-23 03:38 | CR ---
INDICATION: Stroke with right-sided weakness and difficulty speaking for 3 days TECHNIQUE: Chest radiograph 1 view COMPARISON: 09/07/2019 FINDINGS: Moderate degradation of image quality noted due to body habitus. Mediastinum: The central pulmonary vessels are near the upper limits of normal in size. [id number] cardiomegaly is present but less prominent than on prior examination. Lung: Small lung volumes are present with mild bibasilar and perihilar atelectasis seen. No sign of pleural effusion seen. No pneumothorax is identified. Bone and Soft tissue: Unremarkable for age. IMPRESSION: 1. [id number] cardiomegaly is present but less prominent than on prior examination. Dictated by Timothy Joyner MD @ 07/23/2020 3:38:14 AM Dictated by: Timothy Joyner MD @ 07/23/2020 03:38:17 (Electronically Signed)
[2020-07-23 03:40] VITALS: BP 186/117; PULSE 105
--- NOTE | 2020-07-23 03:55 | CT ---
INDICATION: Acute stroke. TECHNIQUE: High resolution axial CT images acquired through the head and neck following rapid intravenous administration of iodinated contrast. Multiplanar MIPS of cranial and cervical vasculature performed. FINDINGS: CTA head: There is normal filling of the intracranial vasculature; i.e. there is no large vessel occlusion or intracranial stenosis. There is no cerebral aneurysm or evidence for vascular malformation. CTA neck: There is no carotid or vertebral artery stenosis or dissection. IMPRESSION: Unremarkable CTA head and neck. Trino Lindsey MD Neurointerventional [employer] [facility] Please note that all CT scans at this facility use dose modulation, iterative reconstruction, and/or weight-based dosing when appropriate to reduce radiation dose to as low as reasonably achievable. Dictated by Trino Lindsey MD @ Jul 23 2020 7:56AM Signed by Dr. Trino Lindsey @ Jul 23 2020 7:56AM
--- NOTE | 2020-07-23 03:55 | CT ---
INDICATION: Acute stroke. TECHNIQUE: High resolution axial CT images acquired through the head and neck following rapid intravenous administration of iodinated contrast. Multiplanar MIPS of cranial and cervical vasculature performed. FINDINGS: CTA head: There is normal filling of the intracranial vasculature; i.e. there is no large vessel occlusion or intracranial stenosis. There is no cerebral aneurysm or evidence for vascular malformation. CTA neck: There is no carotid or vertebral artery stenosis or dissection. IMPRESSION: Unremarkable CTA head and neck. Trino Lindsey MD Neurointerventional Radiologist [facility] Please note that all CT scans at this facility use dose modulation, iterative reconstruction, and/or weight-based dosing when appropriate to reduce radiation dose to as low as reasonably achievable. Dictated by Trino Lindsey MD @ Jul 23 2020 7:52AM Signed by Dr. Trino Lindsey @ Jul 23 2020 7:56AM
== END 2020-07-23 04:10 ==
LOC: MW.ED 02:27
DX: I63.9 Cerebral infarction, unspecified (principal); E11.10 Type 2 diabetes mellitus with ketoacidosis without coma; I11.0 Hypertensive heart disease with heart failure; I50.9 Heart failure, unspecified; I25.2 Old myocardial infarction; J45.909 Unspecified asthma, uncomplicated; K21.9 Gastro-esophageal reflux disease without esophagitis; E03.9 Hypothyroidism, unspecified; Z79.899 Other long term (current) drug therapy
CPT/HCPCS: 36415; 70450; 70496; 70498; 71045; 80053; 80305; 80307; 82009; 82803; 84484; 85025; 85610; 85730; 93005; 96360; 99285; J7030; Q9967; J1815-GY

== ENCOUNTER 2020-08-23 22:17 | Emergency (ER) | payer SELFPAY ==
[2020-08-23] MEDS ORDERED: Sodium Chloride 0.9% 2.5 ML Syringe FLUSH PRN (22:37)
[2020-08-23] MEDS ORDERED: Sodium Chloride 0.9% 10 ML Syringe FLUSH PRN (22:37)
[2020-08-23] MEDS ORDERED: Ketorolac 30 MG/ML SDV IVPUSH ONE (22:38)
[2020-08-23] MEDS ORDERED: LORazepam 2 MG/ML SDV IVPUSH ONE (22:39)
--- NOTE | 2020-08-23 22:44 | EDM.PDOC ---
ED HPI GENERAL MEDICAL PROBLEM - General Chief Complaint: General Stated Complaint: RECENT STROKE, TWITCHING, PAIN Time Seen by Provider: 08/23/20 22:19 - History of Present Illness INITIAL COMMENTS - FREE TEXT/NARRATIVE: 39-year-old male with a history of hypothyroidism, diabetes, hypertension, recent CVA who is presenting due to friend concern regarding twitching. The patient states that ever since he woke up in my not after having had a stroke he develops right-sided twitching particularly when he is anxious or stressed. He states that they are currently staying at a friend's house and that someone there is a former [employer] ASSUR[employer] REPRESENTATIVE or other nursing provider and she insisted that the patient come in today because of this twitching. He states that this twitching happens whenever he is bothered and he is not concerned by it. He denies headache neck pain chest pain abdominal pain nausea vomiting or other symptoms. He states that the symptoms worsen with stress and "lots of questions." And improve when he is left alone. He states that he is compliant with his medication. The other person in the house has called ER multiple times and expressed concern about his thyroid. He states that his thyroid levels are known to be high and that is primary doctor is working to get it lowered. - Related Data Allergies Allergy/AdvReac Type Severity Reaction Status Date / Time No Known Allergies Allergy Verified 08/23/20 23:20 Home Meds: Home Meds Levothyroxine 200 mcg PO ACBREAKFAST 03/04/15 [History] lisinopriL [Prinivil] 20 mg PO DAILY 03/04/15 [History] carvediloL [Carvedilol] 12.5 mg PO BID 09/08/18 [History] Furosemide [Lasix] 40 mg PO ASDIRECTED 09/07/19 [History] Omeprazole 40 mg PO ASDIRECTED 09/07/19 [History] Albuterol [Ventolin HFA] 2 puff INH PRN 07/23/20 [History] Diltiazem [Tiazac] 240 mg PO DAILY 07/23/20 [History] Mometasone/Formoterol [Dulera 100-5 MCG] 1 puff INH 07/23/20 [History] Mupirocin Oint [Bactroban Oint] 22 gm TP 07/23/20 [History] Potassium Chloride [Klor-Con 10] 10 meq PO DAILY 07/23/20 [History] Rosuvastatin Calcium 10 mg PO DAILY 07/23/20 [History] Spironolactone [Aldactone] 25 mg PO DAILY 07/23/20 [History] glipiZIDE [Glucotrol XL] 10 mg PO DAILY 07/23/20 [History] sitaGLIPtin Phosphate [Januvia] 100 mg PO DAILY 07/23/20 [History] Past Medical History Cardiovascular History: Reports: Heart Failure, Hypertension, OR, Other (See Below) Other Cardiovascular History: IHSS; CHF Respiratory History: Reports: Asthma Other Respiratory History: was on home 02 but "not anymore" Other Gastrointestinal History: reports acid reflux Psychiatric History: Reports: Anxiety, Depression, PTSD Endocrine/Metabolic History: Reports: Diabetes, Type II, Hypothyroidism Dermatologic History: Reports: None - Infectious Disease History Infectious Disease History: Reports: Chicken Pox - Past Surgical History Cardiovascular Surgical History: Reports: Other (See Below) Other Cardiovascular Surgeries/Procedures: OR August 2013 Respiratory Surgical History: Reports: None GI Surgical History: Reports: None Social & Family History - Family History Family Medical History: No Pertinent Family History - Caffeine Use Caffeine Use: Reports: Soda ED ROS GENERAL - Review of Systems Review Of Systems: See Below Free Text/Narrative/Comment: General: No fever. Skin: No rash. Eyes: No vision problems. ENT: No sore throat. Neck: No neck stiffness. Respiratory: No shortness of breath. Cardiac: No chest pain. Gastrointestinal: No nausea, vomiting or abdominal pain. Urinary: No dysuria. Musculoskeletal: No myalgias/arthralgias. Neurologic: Per HPI ED EXAM, GENERAL - Physical Exam Exam: See Below Free Text/Narrative:: General Appearance: No acute distress, appears comfortable Skin: No rash HEENT: Normocephalic/atraumatic, sclera anicteric, mucous membranes moist Neck: Normal range of motion Chest and Lungs: Bilateral breath sounds, clear to auscultation Cardiovascular: Regular rate and rhythm, no murmur Abdomen: Soft, non-tender Back: Normal Musculoskeletal: No edema or tenderness Neurologic: 5 out of 5 strength bilateral upper and lower extremities there is a nonrhythmic intermittent hemiballismus-like motion in the right upper and lower extremity it does increase in severity when he is agitated and does resolve with distraction 5 out of 5 strength bilateral upper and lower extremities normal [id number] bilaterally face symmetric. Psychiatric: Appropriate, cooperative Course - Vital Signs Last Recorded V/S: Last Vital Signs Temp 98.0 F 08/23/20 22:29 Pulse 100 08/23/20 22:29 Resp 20 08/23/20 22:29 BP 134/88 08/23/20 22:29 Pulse Ox 97 08/23/20 22:29 - Orders/Labs/Meds Orders: Active Orders 24 hr Category Date Time Status Sodium Chloride 0.9% [Saline Flush] Med 08/23/20 22:37 Active 10 ml FLUSH ASDIRECTED PRN Sodium Chloride 0.9% [Saline Flush] Med 08/23/20 22:37 Active 2.5 ml FLUSH ASDIRECTED PRN Saline Lock Insert [OM.PC] Stat Oth 08/23/20 22:37 Ordered Medication Orders Sodium Chloride (Saline Flush) 10 ml FLUSH ASDIRECTED PRN PRN Reason: Keep Vein Open Last Admin: 08/23/20 22:55 Dose: 10 ml Documented by: CHONG Sodium Chloride (Saline Flush) 2.5 ml FLUSH ASDIRECTED PRN PRN Reason: Keep Vein Open Last Admin: 08/23/20 22:55 Dose: 2.5 ml Documented by: CHONG Labs: Laboratory Tests 08/23/20 08/23/20 Range/Units 22:50 22:50 WBC 8.57 (4.0-11.0) K/uL RBC 3.56 L (4.50-5.90) M/uL Hgb 10.6 L (13.0-17.0) g/dL Hct 32.2 L (38.0-50.0) % MCV 90.4 (80.0-98.0) fL MCH 29.8 (27.0-32.0) pg MCHC 32.9 (31.0-37.0) g/dL RDW Std Deviation 46.6 (28.0-62.0) fl RDW Coeff of Edmundo 14 (11.0-15.0) % Plt Count 255 (150-400) K/uL MPV 9.50 (7.40-12.00) fL Neut % (Auto) 61.4 (48.0-80.0) % Lymph % (Auto) 26.3 (16.0-40.0) % [place] % (Auto) 8.9 (0.0-15.0) % Eos % (Auto) 2.8 (0.0-7.0) % Baso % (Auto) 0.6 (0.0-1.5) % Neut # (Auto) 5.3 (1.4-5.7) K/uL Lymph # (Auto) 2.3 (0.6-2.4) K/uL [place] # (Auto) 0.8 (0.0-0.8) K/uL Eos # (Auto) 0.2 (0.0-0.7) K/uL Baso # (Auto) 0.1 (0.0-0.1) K/uL Nucleated RBC % 0.0 /100WBC Nucleated RBCs # 0 K/uL Sodium 143 (136-148) mmol/L Potassium 3.9 (3.5-5.1) mmol/L Chloride 110 H (98-107) mmol/L Carbon Dioxide 22.3 (21.0-32.0) mmol/L BUN 29 H (7.0-18.0) mg/dL Creatinine 2.4 H (0.8-1.3) mg/dL Est Cr Clr Drug Dosing 42.25 mL/min Estimated GFR (MDRD) 30.1 ml/min Glucose 197 H (74-106) mg/dL Calcium 8.3 L (8.5-10.1) mg/dL Total Bilirubin 0.2 (0.2-1.0) mg/dL AST 14 L (15-37) IU/L ALT 21 (14-63) IU/L Alkaline Phosphatase 97 (46-116) U/L Creatine Kinase 58 (26-308) U/L Total Protein 7.5 (6.4-8.2) g/dL Albumin 3.4 (3.4-5.0) g/dL Globulin 4.1 H (2.6-4.0) g/dL Albumin/Globulin Ratio 0.8 L (0.9-1.6) Meds: Medications Generic Name Dose Route Start Last Admin Trade Name Freq PRN Reason Stop Dose Admin Sodium Chloride 10 ml 08/23/20 22:37 08/23/20 22:55 Saline Flush FLUSH 10 ml ASDIRECTED PRN Administration Keep Vein Open Sodium Chloride 2.5 ml 08/23/20 22:37 08/23/20 22:55 Saline Flush FLUSH 2.5 ml ASDIRECTED PRN Administration Keep Vein Open Discontinued Medications Generic Name Dose Route Start Last Admin Trade Name Fred PRN Reason Stop Dose Admin Ketorolac Tromethamine 15 mg 08/23/20 22:38 08/23/20 22:54 Toradol IVPUSH 08/23/20 22:39 15 mg ONETIME ONE Administration Lorazepam 2 mg 08/23/20 22:39 08/23/20 22:52 Ativan IVPUSH 08/23/20 22:40 2 mg ONETIME ONE Administration Departure - Departure Time of Disposition: 00:03 Disposition: Home, Self-Care 01 Condition: Good Clinical Impression: Abnormal movements, Renal insufficiency - Discharge Information *PRESCRIPTION DRUG MONITORING PROGRAM REVIEWED*: Not Applicable *COPY OF PRESCRIPTION DRUG MONITORING REPORT IN PATIENT DAVID: Not Applicable Instructions: Chronic Kidney Disease, Adult Forms: ED Department Discharge Additional Instructions: Your labs today showed that your kidney function well mildly abnormal is the same as it was back in June. Important your primary doctor follow these labs to ensure that your kidney function does not worsen. You did not have any signs on evaluation today of thyroid storm. However, it is important that you continue following with your primary provider regarding your elevated thyroid levels. Please continue to take your medications as prescribed and follow-up with your doctor. Sepsis Event Note (ED) - Evaluation Sepsis Screening Result: No Definite Risk - Focused Exam Vital Signs: Vital Signs Temp Pulse Resp BP Pulse Ox 08/23/20 22:29 98.0 F 100 20 134/88 97 - My Orders Last 24 Hours: My Active Orders 08/23/20 22:37 Sodium Chloride 0.9% [Saline Flush] 10 ml FLUSH ASDIRECTED PRN Sodium Chloride 0.9% [Saline Flush] 2.5 ml FLUSH ASDIRECTED PRN Saline Lock Insert [OM.PC] Stat - Assessment/Plan Last 24 Hours: My Active Orders 08/23/20 22:37 Sodium Chloride 0.9% [Saline Flush] 10 ml FLUSH ASDIRECTED PRN Sodium Chloride 0.9% [Saline Flush] 2.5 ml FLUSH ASDIRECTED PRN Saline Lock Insert [OM.PC] Stat Assessment:: 39-year-old male presenting with abnormal right sided motion. They do improve with distraction I do not think this represents a partial seizure. It could be related to his prior stroke but I do not think it represents seizure. He has no headache he has no neuro findings that are new I do not have concern for new stroke or new bleeding. He is known to have hypothyroidism and he is currently on medication he is not profoundly tachycardic profoundly hypertensive or showing other signs of thyroid storm. Patient will be given Toradol and Ativan for his muscle soreness in his abnormal motion basic blood work will be sent as well if this is unremarkable and symptoms improve I think he can likely go home for further outpatient follow-up. 2325: When the patient is left alone in the room his shaking resolves. Pt's housemates reportedly called and asked that he be tested for COVID. He has no symptoms that suggest COVID. Given this there is no indication for testing here and the patient would need to follow-up at the respiratory clinic for testing if desired. 0002: Patient continues to be resting comfortably labs are stable renal insuffi ciency but are otherwise unremarkable. No indication for further evaluation or admission at this time patient encouraged to continue following up with his primary providers.
[2020-08-23 23:25] LABS: CARBON DIOXIDE,CO2 22.3 mmol/L (21.0-32.0); POTASSIUM,K 3.9 mmol/L (3.5-5.1)
[2020-08-24 00:30] VITALS: BP 130/80; PULSE 78
== END 2020-08-24 00:34 | disposition home or self-care (01) ==
LOC: MW.ED 22:17
DX: N28.9 Disorder of kidney and ureter, unspecified (principal); G25.9 Extrapyramidal and movement disorder, unspecified; I11.0 Hypertensive heart disease with heart failure; I50.9 Heart failure, unspecified; I25.2 Old myocardial infarction; J45.909 Unspecified asthma, uncomplicated; E11.9 Type 2 diabetes mellitus without complications; E03.9 Hypothyroidism, unspecified; Z68.38 Body mass index [BMI] 38.0-38.9, adult; Z99.81 Dependence on supplemental oxygen; Z86.73 Personal history of transient ischemic attack (TIA), and cerebral infarction without residual deficits
CPT/HCPCS: 36415; 80053; 82550; 85025; 96374; 96375; 99283; J1885; J2060

== ENCOUNTER 2021-10-29 11:07 | Emergency (ER) | payer MEDICAID, OTHER ==
[2021-10-29] MEDS ORDERED: Lisinopril 10 MG Tab PO ONE (11:24)
[2021-10-29] MEDS ORDERED: Furosemide 40 MG/4 ML VIAL IVPUSH ONE (11:24)
[2021-10-29 12:12] LABS: CARBON DIOXIDE,CO2 25.3 mmol/L (21.0-32.0); POTASSIUM,K 3.8 mmol/L (3.5-5.1)
[2021-10-29] MEDS ORDERED: Metoprolol Tartrate 5 MG/5 ML SDV IVPUSH ONE (14:53)
[2021-10-29] MEDS ORDERED: Aspirin 81 MG Tab.Chew PO STA (14:54)
[2021-10-29 16:04] VITALS: BP 164/110; PULSE 85
== END 2021-10-29 16:05 | disposition home or self-care (01) ==
LOC: MW.ED 11:07
DX: I16.0 Hypertensive urgency (principal); I11.0 Hypertensive heart disease with heart failure; I50.9 Heart failure, unspecified; I25.2 Old myocardial infarction; J45.909 Unspecified asthma, uncomplicated; K21.9 Gastro-esophageal reflux disease without esophagitis; E11.9 Type 2 diabetes mellitus without complications; E03.9 Hypothyroidism, unspecified; I44.7 Left bundle-branch block, unspecified; Z91.19 Patient's noncompliance with other medical treatment and regimen; Z79.899 Other long term (current) drug therapy; Z79.84 Long term (current) use of oral hypoglycemic drugs; Z20.822 Contact with and (suspected) exposure to COVID-19
CPT/HCPCS: 36415; 71045; 80053; 81001; 83735; 83880; 84443; 84484; 85025; 87635; 93005; 96374; 96375; 99285; A9270; J1940; J3490; U0002

== ENCOUNTER 2022-03-22 17:39 | Emergency (ER) | payer OTHER ==
[2022-03-22 19:06] VITALS: BP 142/71; PULSE 88
== END 2022-03-22 19:06 ==
LOC: MW.ED 17:39
DX: Z02.89 Encounter for other administrative examinations (principal); E11.9 Type 2 diabetes mellitus without complications; I11.0 Hypertensive heart disease with heart failure; I50.9 Heart failure, unspecified; I25.2 Old myocardial infarction; E03.9 Hypothyroidism, unspecified; Z79.899 Other long term (current) drug therapy
CPT/HCPCS: 99282; 99283

== ENCOUNTER 2022-07-14 12:08 | Emergency (ER) | payer OTHER ==
[2022-07-14] MEDS ORDERED: Lidocaine 5% Oint 35.44 GM Tube TOP STA (12:39)
[2022-07-14 12:42] VITALS: BP 172/120; PULSE 90
== END 2022-07-14 13:35 | disposition home or self-care (01) ==
LOC: MW.ED 12:08
DX: B02.9 Zoster without complications (principal); I11.0 Hypertensive heart disease with heart failure; I50.9 Heart failure, unspecified; I25.2 Old myocardial infarction; E11.9 Type 2 diabetes mellitus without complications; E03.9 Hypothyroidism, unspecified; Z79.899 Other long term (current) drug therapy
CPT/HCPCS: 99282

== ENCOUNTER 2022-09-01 21:57 | Observation (INO) | payer MEDICAID, OTHER ==
[2022-09-01] MEDS ORDERED: Sodium Chloride 0.9% 1,000 ML IV ONE (22:18)
[2022-09-01] MEDS ORDERED: Sodium Chloride 0.9% 10 ML Syringe FLUSH PRN (22:18)
[2022-09-01] MEDS ORDERED: Ondansetron 4 MG/2 ML SDV IVPUSH ONE (22:18)
[2022-09-01] MEDS ORDERED: LORazepam 2 MG/ML SDV IVPUSH ONE (22:18)
[2022-09-01] MEDS ORDERED: Sodium Chloride 0.9% 2.5 ML Syringe FLUSH PRN (22:18)
[2022-09-01] MEDS ORDERED: Aspirin 81 MG Tab.Chew PO ONE (22:18)
[2022-09-01] MEDS: Nitroglycerin 0.4 MG Tab.SL SL PRN ×2 (22:27→22:39)
[2022-09-01 22:49] LABS: BLOOD UREA NITROGEN,BUN 36 mg/dL (7.0-18.0); CARBON DIOXIDE,CO2 25.6 mmol/L (21.0-32.0); CHLORIDE,CL 103 mmol/L (98-107); GLUCOSE RANDOM 201 mg/dL (74-106); POTASSIUM,K 4.9 mmol/L (3.5-5.1); SODIUM,NA 137 mmol/L (136-148)
[2022-09-01 23:00] LABS: ESTIMATED GFR 40 mL/min (>60)
[2022-09-02] MEDS ORDERED: cloNIDine 0.1 MG Tab PO ONE ×2 (00:24)
[2022-09-02] MEDS ORDERED: Morphine 2 MG/ML SYRINGE IVPUSH PRN (02:28)
[2022-09-02] MEDS ORDERED: Acetaminophen 325 MG Tab PO PRN (02:28)
[2022-09-02] MEDS ORDERED: Ondansetron 4 MG/2 ML SDV IVPUSH PRN (02:28)
[2022-09-02] MEDS ORDERED: LORazepam 2 MG/ML SDV IV PRN (02:28)
[2022-09-02] MEDS ORDERED: Albuterol/Ipratropium 3.0-0.5 MG/3 ML Neb Soln NEB PRN (02:28)
[2022-09-02] MEDS ORDERED: Nitroglycerin 0.4 MG Tab.SL SL PRN (02:31)
[2022-09-02] MEDS ORDERED: Labetalol 100 MG/20 ML MDV IVPUSH PRN (02:34)
[2022-09-02] MEDS ORDERED: Glucagon,Human Recombinant 1 MG Vial IM PRN (02:39)
[2022-09-02] MEDS ORDERED: 50% Dextrose in Water 50 ML Syringe IVPUSH PRN (02:39)
[2022-09-02 03:03] LABS: HEMOGLOBIN A1C 7.4 %
[2022-09-02] MEDS ORDERED: Levothyroxine 150 MCG Tab PO SCH (07:30)
[2022-09-02] MEDS: Insulin Aspart 100 Units/ML 3 ML Pen SUBCUT SCH ×2 (08:04→11:26)
[2022-09-02] MEDS ORDERED: Lisinopril 10 MG Tab PO SCH (09:00)
[2022-09-02] MEDS ORDERED: Omeprazole 20 MG Cap.CR PO SCH (09:00)
[2022-09-02] MEDS ORDERED: Diltiazem 120 MG Cap.CD PO SCH (09:00)
[2022-09-02] MEDS ORDERED: Rosuvastatin 10 MG Tab PO SCH (09:00)
[2022-09-02] MEDS ORDERED: Spironolactone 25 MG Tab PO SCH (09:00)
[2022-09-02] MEDS ORDERED: Furosemide 40 MG Tab PO SCH (09:00)
[2022-09-02] MEDS ORDERED: Carvedilol 12.5 MG Tab PO SCH (09:00)
[2022-09-02] MEDS ORDERED: Aspirin 81 MG Tab.Chew PO SCH (09:00)
[2022-09-02 11:48] VITALS: BP 138/92; PULSE 77
== END 2022-09-02 13:40 | disposition home or self-care (01) ==
LOC: MW.ED 21:57 → MW.MS 09-02 01:00
PROVIDERS: ADMIT Student in an Organized Health Care Education/Training Program; ATTEND Student in an Organized Health Care Education/Training Program
DX: I24.9 Acute ischemic heart disease, unspecified (principal); I16.0 Hypertensive urgency; I11.0 Hypertensive heart disease with heart failure; I50.9 Heart failure, unspecified; R07.9 Chest pain, unspecified; E78.5 Hyperlipidemia, unspecified; E11.9 Type 2 diabetes mellitus without complications; E03.9 Hypothyroidism, unspecified; I63.9 Cerebral infarction, unspecified; E66.01 Morbid (severe) obesity due to excess calories; F41.9 Anxiety disorder, unspecified; F17.210 Nicotine dependence, cigarettes, uncomplicated; Z68.37 Body mass index [BMI] 37.0-37.9, adult; Z20.822 Contact with and (suspected) exposure to COVID-19; Z79.899 Other long term (current) drug therapy; Z79.890 Hormone replacement therapy; Z98.890 Other specified postprocedural states
CPT/HCPCS: 36415; 70450; 71045; 80053; 80061; 80305; 80307; 82947; 83036; 83735; 84439; 84443; 84484; 85025; 85610; 85730; 87635; 93306; 96361; 96374; 96375; 99285; A9270; J1815; J2060; J2405; J7030; G0378; U0002

== ENCOUNTER 2022-10-15 16:59 | Inpatient (IN) | payer MEDICAID, OTHER ==
[2022-10-15] MEDS ORDERED: Sodium Chloride 0.9% 1,000 ML IV ONE ×3 (17:10→17:45)
[2022-10-15 17:47] LABS: BLOOD UREA NITROGEN,BUN 47 mg/dL (7.0-18.0); CARBON DIOXIDE,CO2 18.2 mmol/L (21.0-32.0); CHLORIDE,CL 105 mmol/L (98-107); GLUCOSE RANDOM 200 mg/dL (74-106); POTASSIUM,K 4.3 mmol/L (3.5-5.1); SODIUM,NA 139 mmol/L (136-148)
[2022-10-15 17:57] LABS: ESTIMATED GFR 21 mL/min (>60)
[2022-10-15 17:58] LABS: CORONAVIRUS COVID-19 NAA NEGATIVE (NEGATIVE); INFLUENZA A NAA NEGATIVE (NEGATIVE); INFLUENZA B NAA NEGATIVE (NEGATIVE)
[2022-10-15] MEDS: Sodium Chloride 0.9% 1,000 ML IV SCH (22:33)
[2022-10-16] MEDS ORDERED: Glucagon,Human Recombinant 1 MG Vial IM PRN (01:36)
[2022-10-16] MEDS ORDERED: 50% Dextrose in Water 50 ML Syringe IVPUSH PRN (01:36)
[2022-10-16] MEDS: Sodium Chloride 0.9% 1,000 ML IV SCH ×2 (06:23→14:28)
[2022-10-16] MEDS: Levothyroxine 125 MCG Tab PO SCH (06:29)
[2022-10-16] MEDS: Insulin Aspart 100 Units/ML 3 ML Pen SUBCUT SCH ×3 (07:39→17:34)
[2022-10-16] MEDS ORDERED: Omeprazole 20 MG Cap.CR PO SCH (09:00)
[2022-10-16] MEDS: Rosuvastatin 10 MG Tab PO SCH (09:01)
[2022-10-16 10:09] LABS: CARBON DIOXIDE,CO2 20.1 mmol/L (21.0-32.0); POTASSIUM,K 4.7 mmol/L (3.5-5.1)
[2022-10-17] MEDS: Levothyroxine 125 MCG Tab PO SCH ×2 (06:14→06:30)
[2022-10-17 06:22] LABS: CARBON DIOXIDE,CO2 22.4 mmol/L (21.0-32.0); POTASSIUM,K 5.3 mmol/L (3.5-5.1)
[2022-10-17] MEDS ORDERED: Omeprazole 20 MG Cap.CR PO SCH (07:30)
[2022-10-17] MEDS: Insulin Aspart 100 Units/ML 3 ML Pen SUBCUT SCH ×2 (07:31→11:24)
[2022-10-17] MEDS: Rosuvastatin 10 MG Tab PO SCH (08:31)
[2022-10-17] MEDS ORDERED: Carvedilol 6.25 MG Tab PO SCH (09:00)
[2022-10-17] MEDS ORDERED: Lisinopril 10 MG Tab PO SCH (09:00)
[2022-10-17] MEDS ORDERED: Furosemide 80 MG Tab PO SCH (11:15)
[2022-10-17] MEDS ORDERED: Spironolactone 25 MG Tab PO SCH (11:15)
[2022-10-17] MEDS ORDERED: Diltiazem 120 MG Cap.CD PO SCH (13:15)
[2022-10-17 13:29] VITALS: PULSE 65
[2022-10-17 14:42] VITALS: BP 159/77
== END 2022-10-17 15:00 | disposition home or self-care (01) | DRG 312 ==
LOC: MW.ED 16:59 → MW.ICU 20:47 → OBSVTOIN 10-16 11:02 → MW.MS 10-16 18:13
PROVIDERS: ADMIT Internal Medicine; ATTEND Internal Medicine
DX: R55 Syncope and collapse (principal); N17.9 Acute kidney failure, unspecified; E86.0 Dehydration; I95.9 Hypotension, unspecified; I25.10 Atherosclerotic heart disease of native coronary artery without angina pectoris; I50.9 Heart failure, unspecified; I11.0 Hypertensive heart disease with heart failure; E03.9 Hypothyroidism, unspecified; E11.9 Type 2 diabetes mellitus without complications; F15.90 Other stimulant use, unspecified, uncomplicated; Z20.822 Contact with and (suspected) exposure to COVID-19; J45.909 Unspecified asthma, uncomplicated; F41.9 Anxiety disorder, unspecified; E66.9 Obesity, unspecified; F32.A Depression, unspecified; F43.10 Post-traumatic stress disorder, unspecified; Z91.14 Patient's other noncompliance with medication regimen; Z79.84 Long term (current) use of oral hypoglycemic drugs; Z79.890 Hormone replacement therapy; Z79.899 Other long term (current) drug therapy; I25.2 Old myocardial infarction; Z87.442 Personal history of urinary calculi; Z86.19 Personal history of other infectious and parasitic diseases; Z98.52 Vasectomy status; Z86.73 Personal history of transient ischemic attack (TIA), and cerebral infarction without residual deficits
CPT/HCPCS: 0240U; 36415; 71045; 71045-26; 80053; 81001; 82947; 83605; 83735; 83880; 84439; 84443; 84484; 85025; 86850; 86900; 86901; 93005; 96360; 96361; 99285-25; A9270-GY; G0378; J1815-GY; J7030

== ENCOUNTER 2023-04-08 19:17 | Emergency (ER) | payer MEDICAID, OTHER ==
[2023-04-08 19:24] VITALS: BP 127/74; PULSE 80
[2023-04-08] MEDS ORDERED: Sodium Chloride 0.9% 2.5 ML Syringe FLUSH PRN (20:37)
[2023-04-08] MEDS ORDERED: Sodium Chloride 0.9% 10 ML Syringe FLUSH PRN (20:37)
[2023-04-08 21:02] LABS: BASOPHILS ABSOLUTE AUTO 0.1 K/uL (0.0-0.1); BASOPHILS PERCENT AUTO 0.4 % (0.0-1.5); EOSINOPHILS ABSOLUTE AUTO 0.3 K/uL (0.0-0.7); EOSINOPHILS PERCENT AUTO 2.8 % (0.0-7.0); HEMOGLOBIN 12.7 g/dL (13.0-17.0); LYMPHOCYTES ABSOLUTE AUTO 2.1 K/uL (0.6-2.4); LYMPHOCYTES PERCENT AUTO 17.1 % (16.0-40.0); MEAN CORPUSCULAR HEMOGLOBIN 30.8 pg (27.0-32.0); MEAN CORPUSCULAR HGB CONC 34.3 g/dL (31.0-37.0); MEAN CORPUSCULAR VOLUME 89.6 fL (80.0-98.0); MONOCYTES ABSOLUTE AUTO 0.7 K/uL (0.0-0.8); MONOCYTES PERCENT AUTO 5.7 % (0.0-15.0); NRBC ABSOLUTE 0 K/uL; PLATELET COUNT,PLT 331 K/uL (150-400); RED BLOOD CELL COUNT 4.13 M/uL (4.50-5.90)
[2023-04-08 21:23] LABS: A/G RATIO 0.8 (0.9-1.6); ALBUMIN 3.9 g/dL (3.4-5.0); BILIRUBIN TOTAL 0.3 mg/dL (0.2-1.0); CALCIUM 8.5 mg/dL (8.5-10.1); CREATININE 4.9 mg/dL (0.8-1.3); EST CRCL DRUG DOSING (CG) 20.07 mL/min; POTASSIUM,K 4.4 mmol/L (3.5-5.1); PROTEIN TOTAL,TP 8.8 g/dL (6.4-8.2)
[2023-04-08] MEDS ORDERED: Sodium Chloride 0.9% 500 ML IV SCH (22:30)
== END 2023-04-08 23:18 | disposition left against medical advice (07) ==
LOC: MW.ED 19:17
DX: R42 Dizziness and giddiness (principal); R06.02 Shortness of breath; I11.0 Hypertensive heart disease with heart failure; I50.9 Heart failure, unspecified; I25.2 Old myocardial infarction; E11.9 Type 2 diabetes mellitus without complications; F17.210 Nicotine dependence, cigarettes, uncomplicated; Z79.899 Other long term (current) drug therapy
CPT/HCPCS: 36415; 71045; 80053; 83735; 85025; 93005; 99285; J3490; J7040; 93010; 99284

== ENCOUNTER 2023-05-30 18:25 | Emergency (ER) | payer MEDICAID, OTHER ==
[2023-05-30] MEDS ORDERED: Sodium Chloride 0.9% 2.5 ML Syringe FLUSH PRN (20:58)
[2023-05-30] MEDS ORDERED: Sodium Chloride 0.9% 10 ML Syringe FLUSH PRN (20:58)
[2023-05-30 22:10] LABS: BASOPHILS PERCENT AUTO 0.3 % (0.0-1.5); HEMATOCRIT 29.4 % (38.0-50.0); HEMOGLOBIN 9.9 g/dL (13.0-17.0); LYMPHOCYTES ABSOLUTE AUTO 1.6 K/uL (0.6-2.4); LYMPHOCYTES PERCENT AUTO 22.2 % (16.0-40.0); MEAN CORPUSCULAR HEMOGLOBIN 30.2 pg (27.0-32.0); MEAN CORPUSCULAR HGB CONC 33.7 g/dL (31.0-37.0); MEAN CORPUSCULAR VOLUME 89.6 fL (80.0-98.0); MONOCYTES ABSOLUTE AUTO 0.4 K/uL (0.0-0.8); NEUTROPHILS ABSOLUTE AUTO 5.2 K/uL (1.4-5.7); NEUTROPHILS PERCENT AUTO 71.5 % (48.0-80.0); NRBC ABSOLUTE 0 K/uL; PLATELET COUNT,PLT 246 K/uL (150-400); RED BLOOD CELL COUNT 3.28 M/uL (4.50-5.90)
[2023-05-30 22:19] LABS: APPEARANCE,URINE CLEAR; BILIRUBIN,URINE NEGATIVE (NEGATIVE); COLOR,URINE YELLOW; GLUCOSE,URINE NEGATIVE (NEGATIVE); KETONES,URINE NEGATIVE (NEGATIVE); LEUKOCYTE ESTERASE,URINE NEGATIVE (NEGATIVE); NITRITE,URINE NEGATIVE (NEGATIVE); OCCULT BLOOD,URINE NEGATIVE (NEGATIVE); PH,URINE 5.5 (5.0-8.0); PROTEIN,URINE NEGATIVE (NEGATIVE); UROBILINOGEN,URINE 0.2 EU/dL (<2.0)
[2023-05-30 22:32] LABS: A/G RATIO 0.8 (0.9-1.6); ALBUMIN 3.8 g/dL (3.4-5.0); BILIRUBIN TOTAL 0.3 mg/dL (0.2-1.0); CALCIUM 8.7 mg/dL (8.5-10.1); CARBON DIOXIDE,CO2 20.8 mmol/L (21.0-32.0); CREATININE 8.3 mg/dL (0.8-1.3); EST CRCL DRUG DOSING (CG) 8.12 mL/min; POTASSIUM,K 6.5 mmol/L (3.5-5.1); PROTEIN TOTAL,TP 8.8 g/dL (6.4-8.2)
[2023-05-30] MEDS ORDERED: 50% Dextrose in Water 50 ML Syringe IVPUSH ONE (22:38)
[2023-05-30] MEDS ORDERED: Insulin Regular, Human 100 Units/ML 10 ML Vial IVPUSH ONE (22:38)
[2023-05-30] MEDS ORDERED: Glucagon,Human Recombinant 1 MG Vial IM PRN (22:38)
[2023-05-30] MEDS ORDERED: Albuterol 0.083% 2.5 MG/3 ML Neb Soln NEB ONE (22:39)
[2023-05-30 22:42] LABS: MAGNESIUM 2.3 mg/dL (1.8-2.4); PHOSPHORUS 7.5 mg/dL (2.6-4.7)
[2023-05-30] MEDS ORDERED: Calcium Gluconate 10% 1 GM/10 ML SDV IVPUSH ONE (22:45)
[2023-05-31] MEDS ORDERED: Furosemide 40 MG/4 ML VIAL IVPUSH ONE (00:23)
[2023-05-31 01:26] LABS: A/G RATIO 0.8 (0.9-1.6); ALBUMIN 3.7 g/dL (3.4-5.0); BILIRUBIN TOTAL 0.3 mg/dL (0.2-1.0); CARBON DIOXIDE,CO2 18.9 mmol/L (21.0-32.0); CREATININE 7.8 mg/dL (0.8-1.3); EST CRCL DRUG DOSING (CG) 8.64 mL/min; POTASSIUM,K 6.1 mmol/L (3.5-5.1); PROTEIN TOTAL,TP 8.6 g/dL (6.4-8.2)
[2023-05-31] MEDS ORDERED: Insulin Regular, Human 100 Units/ML 10 ML Vial IVPUSH ONE (01:47)
[2023-05-31] MEDS ORDERED: Glucagon,Human Recombinant 1 MG Vial IM PRN (01:47)
[2023-05-31] MEDS ORDERED: 50% Dextrose in Water 50 ML Syringe IVPUSH STA (01:48)
[2023-05-31 02:11] VITALS: BP 129/71; PULSE 61
== END 2023-05-31 02:51 ==
LOC: MW.ED 18:25
DX: E87.5 Hyperkalemia (principal); E03.9 Hypothyroidism, unspecified; I11.0 Hypertensive heart disease with heart failure; I50.9 Heart failure, unspecified; I25.2 Old myocardial infarction; E11.9 Type 2 diabetes mellitus without complications; Z86.73 Personal history of transient ischemic attack (TIA), and cerebral infarction without residual deficits; Z79.899 Other long term (current) drug therapy
CPT/HCPCS: 36415; 80053; 81003; 82947; 83690; 83735; 84100; 84484; 85025; 93005; 96374; 96375; 96376; 99285; J0612; J1815; J1940; J3490; 93010; 99284; J7620-GY

== ENCOUNTER 2024-06-18 15:28 | Emergency (ER) | payer MEDICAID, OTHER ==
[2024-06-18] MEDS: Benzocaine 20% Topical Spray UD MUCMEM ONE (16:17)
[2024-06-18] MEDS: Lidocaine 2% Viscous Solution 15 ML UD PO ONE (16:17)
[2024-06-18] MEDS: Amoxicillin/Clavulanate K 875-125 MG Tab PO ONE (16:18)
[2024-06-18] MEDS: Acetaminophen/HYDROcodone 325-5 MG Tab PO ONE (16:18)
[2024-06-18 16:49] VITALS: BP 162/90; PULSE 66
== END 2024-06-18 16:31 | disposition home or self-care (01) ==
LOC: MW.ED 15:28
DX: K04.7 Periapical abscess without sinus (principal); K02.9 Dental caries, unspecified; I11.0 Hypertensive heart disease with heart failure; I50.9 Heart failure, unspecified; I25.2 Old myocardial infarction; E11.9 Type 2 diabetes mellitus without complications; F17.210 Nicotine dependence, cigarettes, uncomplicated; J45.909 Unspecified asthma, uncomplicated; Z79.84 Long term (current) use of oral hypoglycemic drugs; Z88.8 Allergy status to other drugs, medicaments and biological substances; Z75.8 Other problems related to medical facilities and other health care; Z79.899 Other long term (current) drug therapy
CPT/HCPCS: 99282; A9270

== ENCOUNTER 2024-12-21 19:16 | Emergency (ER) | payer OTHER ==
[2024-12-21 19:38] VITALS: BP 140/90; PULSE 80
== END 2024-12-21 19:51 | disposition home or self-care (01) ==
LOC: MW.ED 19:16
DX: S61.011A Laceration without foreign body of right thumb without damage to nail, initial encounter (principal); I11.0 Hypertensive heart disease with heart failure; I50.9 Heart failure, unspecified; I25.2 Old myocardial infarction; J45.909 Unspecified asthma, uncomplicated; E11.9 Type 2 diabetes mellitus without complications; Z86.73 Personal history of transient ischemic attack (TIA), and cerebral infarction without residual deficits; Z88.8 Allergy status to other drugs, medicaments and biological substances; Z79.4 Long term (current) use of insulin; Z79.890 Hormone replacement therapy; Z79.899 Other long term (current) drug therapy; W27.4XXA Contact with kitchen utensil, initial encounter
CPT/HCPCS: 12001; 99282; 99283

== ENCOUNTER 2025-05-23 20:54 | Emergency (ER) | payer OTHER ==
[2025-05-23] MEDS: Ondansetron 4 MG/2 ML SDV IVPUSH ONE (21:46)
[2025-05-23 21:48] LABS: BASOPHILS ABSOLUTE AUTO 0.03 K/uL (0.00-0.20); BASOPHILS PERCENT AUTO 0.4 % (0.0-1.0); EOSINOPHILS ABSOLUTE AUTO 0.11 K/uL (0.00-0.45); EOSINOPHILS PERCENT AUTO 1.3 % (0.0-6.0); IMMATURE GRAN ABSOLUTE AUTO 0.04 K/uL (0.00-0.05); IMMATURE GRAN PERCENT AUTO 0.5 % (0.0-0.4); LYMPHOCYTES ABSOLUTE AUTO 1.45 K/uL (1.00-4.80); LYMPHOCYTES PERCENT AUTO 17.3 % (24.0-44.0); MEAN PLATELET VOLUME 10.4 fL (9.4-12.4); MONOCYTES ABSOLUTE AUTO 0.50 K/uL (0.00-0.80); MONOCYTES PERCENT AUTO 6.0 % (0.0-8.0); NEUTROPHILS ABSOLUTE AUTO 6.23 K/uL (1.80-7.70); NEUTROPHILS PERCENT AUTO 74.5 % (41.0-71.0); NRBC ABSOLUTE 0.00 K/uL (0.00-0.02); NRBC PERCENT 0.0 /100WBC (0.0-0.2); PLATELET COUNT,PLT 201 K/uL (150-400); RED BLOOD CELL COUNT 3.33 M/uL (4.52-5.90); WHITE BLOOD CELL COUNT,WBC 8.36 K/uL (3.9-11.3)
[2025-05-23 22:17] LABS: A/G RATIO 1.1 (0.9-1.6); ALANINE AMINOTRANSFERASE,ALT 24.0 IU/L (14-63); ASPARTATE AMNIOTRANSFERASE,AST 10.0 IU/L (15-37); BILIRUBIN TOTAL 0.5 mg/dL (0.2-1.0); BLOOD UREA NITROGEN,BUN 113.0 mg/dL (7.0-18.0); CARBON DIOXIDE,CO2 22.0 mmol/L (21.0-32.0); CHLORIDE,CL 100.0 mmol/L (98-107); CREATININE 9.1 mg/dL (0.8-1.3); EST CRCL DRUG DOSING (CG) 10.58 mL/min; GLUCOSE RANDOM 143.0 mg/dL (74-106); POTASSIUM,K 6.5 mmol/L (3.5-5.1); PROTEIN TOTAL,TP 8.6 g/dL (6.4-8.2); SODIUM,NA 135.0 mmol/L (136-148)
[2025-05-23 22:24] LABS: ESTIMATED GFR 7.0 mL/min (>60)
[2025-05-23] MEDS: cefTRIAXone 1 GM in Water For Injection, Sterile 10 ML IVPUSH ONE (22:32)
[2025-05-24 03:58] VITALS: BP 106/66; PULSE 68
== END 2025-05-23 23:40 | disposition home or self-care (01) ==
LOC: MW.ED 20:54
DX: R11.2 Nausea with vomiting, unspecified (principal); K05.6 Periodontal disease, unspecified; I11.0 Hypertensive heart disease with heart failure; I25.2 Old myocardial infarction; E78.00 Pure hypercholesterolemia, unspecified; E11.9 Type 2 diabetes mellitus without complications; E03.9 Hypothyroidism, unspecified; Z79.890 Hormone replacement therapy; Z79.899 Other long term (current) drug therapy; Z88.8 Allergy status to other drugs, medicaments and biological substances
CPT/HCPCS: 36415; 71045; 80053; 83690; 84484; 85025; 93005; 96361; 96374; 96375; 99284; J0696; J2405; J7030; 93010; 99283